=== PATIENT | female | born 1980 | race Two or more races ===

== ENCOUNTER 2016-10-24 15:41 | Emergency (ER) | payer BC ==
[2016-10-24] MEDS ORDERED: Metoprolol Tartrate 5 MG/5 ML SDV IVPUSH ONE (16:14)
[2016-10-24] MEDS ORDERED: Lisinopril 10 MG Tab PO ONE (16:30)
--- NOTE | 2016-10-24 16:36 | EDM.PDOC ---
ED HPI GENERAL MEDICAL PROBLEM - General Chief Complaint: Headache Stated Complaint: hypertension, headache Time Seen by Provider: 10/24/16 16:14 Source of Information: Reports: Patient History Limitations: Reports: No Limitations - History of Present Illness INITIAL COMMENTS - FREE TEXT/NARRATIVE: Patient seen yesterday at the clinic for hypertension with accompanying headache. Started on Klonopin at that time. Here today with similar complaints. Initial blood pressure 180 systolic, 116 diastolic. On norvasc and klonopin. 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 Has been taking the norvasc for over 1 year. Last year they did increase it to 10 mg daily. No other medication for HTN, no KELLY or ARB started prior to the CCB. No visual disturbances but does state her eyes hurt. No weakness, numbness or tingling. Equal strength. No chest pain or shortness of breath. Denies urinary symptoms. No blood in urine or bowels. Onset: Gradual Duration: Recurring Location: Reports: Head Quality: Reports: Ache Severity: Mild Improves with: Reports: Rest Worsens with: Reports: Movement Associated Symptoms: Reports: Headaches Headache Pain Score (Numeric/FACES): 2 - Related Data Allergies Allergy/AdvReac Type Severity Reaction Status Date / Time acetaminophen [From Tylenol] Allergy Rash Verified 10/24/16 17:01 Home Meds: Home Meds ClonazePAM [KlonoPIN] 0.5 mg PO BEDTIME 10/24/16 [History] Cyclobenzaprine HCl [Cyclobenzaprine HCl] 10 mg PO TID PRN 10/24/16 [History] Sertraline HCl [Sertraline HCl] 50 mg PO DAILY 10/24/16 [History] amLODIPine Besylate [Amlodipine Besylate] 10 mg PO DAILY 10/24/16 [History] Past Medical History - Past Health History Medical/Surgical History: Denies Medical/Surgical History Other Musculoskeletal History: plantar fascitis Social & Family History - Tobacco Use Smoking Status *Q: Unknown Ever Smoked Second Hand Smoke Exposure: No - Alcohol Use Days Per Week of Alcohol Use: 0 - Recreational Drug Use Recreational Drug Use: No ED ROS GENERAL - Review of Systems Review Of Systems: See Below Constitutional: Reports: No Symptoms HEENT: Reports: Eye Pain Respiratory: Reports: No Symptoms Cardiovascular: Reports: No Symptoms Endocrine: Reports: No Symptoms GI/Abdominal: Reports: No Symptoms : Reports: No Symptoms Musculoskeletal: Reports: No Symptoms Skin: Reports: No Symptoms Neurological: Reports: Headache Psychiatric: Reports: No Symptoms Hematologic/Lymphatic: Reports: No Symptoms Immunologic: Reports: No Symptoms - Physical Exam Exam: See Below Exam Limited By: No Limitations General Appearance: Alert, WD/WN, No Apparent Distress Eye Exam: Bilateral Eye: EOMI, Normal Inspection, PERRL Ears: Normal TMs Throat/Mouth: Normal Inspection, Normal Oropharynx Head Exam: Atraumatic, Normocephalic Neck: Normal Inspection, Supple, Non-Tender, Full Range of Motion Respiratory/Chest: No Respiratory Distress, Lungs Clear, Normal Breath Sounds, No Accessory Muscle Use, Chest Non-Tender Cardiovascular: Normal Peripheral Pulses, Regular Rate, Rhythm, No Edema, No Gallop, No JVD, No Murmur GI/Abdominal: Normal Bowel Sounds, Soft, Non-Tender, No Organomegaly, No Distention Neuro Exam (Abbreviated): Alert, Oriented, CN II-XII Intact, Normal Cognition, Normal Gait, Normal Reflexes, No Motor/Sensory Deficits Back Exam: Normal Inspection Extremities: Normal Inspection, Normal Range of Motion, Non-Tender, No Pedal Edema, Normal Capillary Refill Psychiatric: Normal Affect, Normal Mood Skin Exam: Warm, Dry, Intact, Normal Color, No Rash Course - Vital Signs Last Recorded V/S: Last Vital Signs Temp 36.1 C 10/24/16 15:45 Pulse 88 10/24/16 17:11 Resp 15 10/24/16 17:11 BP 147/90 H 10/24/16 17:11 Pulse Ox 99 10/24/16 17:11 - Orders/Labs/Meds Orders: Active Orders 24 hr Category Date Time Status TSH RECEPTOR AB (TRAB) [REF] Stat Lab 10/24/16 18:23 Stop Req Meds: Medications Discontinued Medications Generic Name Dose Route Start Last Admin Trade Name Freq PRN Reason Stop Dose Admin Lisinopril 10 mg 10/24/16 16:30 10/24/16 16:43 Prinivil PO 10/24/16 16:31 10 mg ONETIME ONE Administration Metoprolol Tartrate 5 mg 10/24/16 16:14 10/24/16 16:28 Lopressor IVPUSH 10/24/16 16:15 5 mg ONETIME ONE Administration - Re-Assessments/Exams Free Text/Narrative Re-Assessment/Exam: 10/24/16 18:28 Patient prescribed 10 mg Lisinopril and requested to see primary in 2 weeks for labwork Departure - Departure Time of Disposition: 15:45 Disposition: Home, Self-Care 01 Condition: Good Clinical Impression: Hypertensive urgency - Discharge Information Instructions: Hypertension, [id number] Referrals: Kriss Finley GAMES DEALER [Primary Care Provider] - Forms: ED Department Discharge Additional Instructions: Please start taking the lisinopril on a daily basis and go to your primary for a blood draw in 2 weeks to check your electrolyte levels. The most common side effect of the lisinopril is a dry hacky cough. You can also have some swelling Keep your salt intake to less than 2,000 mg, drink more water, and increase your physical activity. This will also lower your blood pressure. If you continue to have a headache, or it becomes worse, or if you have any concerning new signs like your headache worsens or vision changes, make sure you come to the ER. If you have any questions or concerns, you can call us at any time. - Problem List & Annotations (1) Hypertensive urgency SNOMED Code(s): 521813554 Code(s): I10 - ESSENTIAL (PRIMARY) HYPERTENSION Status: Acute Priority: Low - Problem List Review Problem List Initiated/Reviewed/Updated: Yes - My Orders Last 24 Hours: My Active Orders 10/24/16 18:23 TSH RECEPTOR AB (TRAB) [REF] Stat - Assessment/Plan Last 24 Hours: My Active Orders 10/24/16 18:23 TSH RECEPTOR AB (TRAB) [REF] Stat Assessment:: hypertensive urgency Plan: Please start taking the lisinopril on a daily basis and go to your primary for a blood draw in 2 weeks to check your electrolyte levels. The most common side effect of the lisinopril is a dry hacky cough. You can also have some swelling Keep your salt intake to less than 2,000 mg, drink more water, and increase your physical activity. This will also lower your blood pressure. If you continue to have a headache, or it becomes worse, or if you have any concerning new signs like your headache worsens or vision changes, make sure you come to the ER. If you have any questions or concerns, you can call us at any time.
[2016-10-24 17:11] VITALS: BP 147/90
== END 2016-10-24 16:45 | disposition home or self-care (01) ==
LOC: VM.ED 15:41
DX: I16.0 Hypertensive urgency (principal); Z88.8 Allergy status to other drugs, medicaments and biological substances; Z79.899 Other long term (current) drug therapy
CPT/HCPCS: 96374; 99283; A9270; J3490

== ENCOUNTER 2020-12-11 16:06 | Inpatient (IN) | payer BC ==
--- NOTE | 2020-12-11 16:34 | EDM.PDOC ---
ED HPI GENERAL MEDICAL PROBLEM - General Chief Complaint: Respiratory Problem Stated Complaint: SHORT OF BREATH Time Seen by Provider: 12/11/20 16:10 Source of Information: Reports: Patient History Limitations: Reports: No Limitations - History of Present Illness INITIAL COMMENTS - FREE TEXT/NARRATIVE: 40-year-old female that presents ER today with ongoing increased shortness of breath over the last 48 hours. She states that even when a struggle to get up and go to the toilet secondary to the shortness of breath. She states if she rest it does get a little bit better but any type of exertion she is has a hard time getting her breath. She also states when she coughs she is having some sharp burning pains across her chest that last for a few seconds. She also has increased fatigue over the last 2 days and states she is run a fever almost every day into the last probably 36 hours. She was diagnosed with Covid 11 days ago and thought she was doing fine until the last 2 or 3 days. She says she took all of her medicine as directed steroids and vitamins 325 of aspirin and has been drinking plenty of fluids and eating okay. But the shortness of breath does seem to be getting worse and she wanted to come in to be checked out. Initially vital signs patient satting 80% with no signs of any respiratory distress she was placed on a nasal cannula her oxygen saturation come up to 93 she is nontachycardic respiratory rate is within normal limits. Duration: Day(s): Location: Reports: Chest Quality: Reports: Burning Severity: Mild Improves with: Reports: Rest Worsens with: Reports: Movement Context: Reports: Activity Associated Symptoms: Reports: Chest Pain, Cough, cough w sputum, Shortness of Breath. Denies: Confusion, Diaphoresis, Fever/Chills, Headaches, Loss of Appetite, Nausea/Vomiting, Weakness Treatments COOK CHEF: Reports: Acetaminophen, Aspirin - Related Data Allergies Allergy/AdvReac Type Severity Reaction Status Date / Time acetaminophen [From Tylenol] Allergy Rash Verified 10/24/16 17:01 Home Meds: Home Meds ClonazePAM [KlonoPIN] 0.5 mg PO BEDTIME 10/24/16 [History] Cyclobenzaprine HCl 10 mg PO TID PRN 10/24/16 [History] Sertraline HCl 50 mg PO DAILY 10/24/16 [History] amLODIPine Besylate [Amlodipine Besylate] 10 mg PO DAILY 10/24/16 [History] Past Medical History - Past Health History Medical/Surgical History: Denies Medical/Surgical History Cardiovascular History: Reports: Hypertension Musculoskeletal History: Reports: Back Pain, Chronic Other Musculoskeletal History: plantar fascitis Psychiatric History: Reports: Anxiety ED ROS GENERAL - Review of Systems Review Of Systems: See Below Constitutional: Reports: Fever. Denies: Chills, Malaise, Weakness, Fatigue HEENT: Reports: No Symptoms Respiratory: Reports: Shortness of Breath, Pleuritic Chest Pain, Cough, Sputum Cardiovascular: Reports: Chest Pain, Dyspnea on Exertion, Other (Patient denies any radiation of the chest pain and points to both sides of her chest wall sternum). Denies: Edema, Lightheadedness, Orthopnea, Palpitations, PND, Syncope Endocrine: Reports: No Symptoms GI/Abdominal: Reports: No Symptoms : Reports: No Symptoms Musculoskeletal: Reports: No Symptoms Skin: Reports: No Symptoms Neurological: Reports: No Symptoms Psychiatric: Reports: No Symptoms Hematologic/Lymphatic: Reports: No Symptoms Immunologic: Reports: No Symptoms ED EXAM, GENERAL - Physical Exam Exam: See Below Exam Limited By: No Limitations General Appearance: Alert, WD/WN, No Apparent Distress, Other (Patient is talking 15 word sentences no noted respiratory distress) Eye Exam: Bilateral Eye: EOMI, Normal Inspection, PERRL Ears: Normal External Exam, Normal Canal, Hearing Grossly Normal, Normal TMs Nose: Normal Inspection, Normal Mucosa, No Blood Throat/Mouth: Normal Inspection, Normal Lips, Normal Teeth, Normal Gums, Normal Oropharynx, Normal Voice, No Airway Compromise Head: Atraumatic, Normocephalic Neck: Normal Inspection, Supple, Non-Tender, Full Range of Motion Respiratory/Chest: No Respiratory Distress, Lungs Clear, Normal Breath Sounds, No Accessory Muscle Use, Chest Non-Tender. No: Decreased Breath Sounds, Crackles, Rales, Rhonchi, Wheezing Cardiovascular: Normal Peripheral Pulses, Regular Rate, Rhythm, No Edema, No Gallop, No JVD, No Murmur, No Rub GI/Abdominal: Normal Bowel Sounds, Soft, Non-Tender, No Organomegaly, No Distention Back Exam: Normal Inspection, Full Range of Motion Extremities: Normal Inspection, Normal Range of Motion, Non-Tender, No Pedal Edema, Normal Capillary Refill Neurological: Alert, Oriented, CN II-XII Intact, Normal Cognition, Normal Gait, Normal Reflexes, No Motor/Sensory Deficits Psychiatric: Normal Affect, Normal Mood Skin Exam: Warm, Dry, Intact, Normal Color, No Rash Lymphatic: No Adenopathy Course - Vital Signs Text/Narrative:: CBC BMP chest x-ray White blood cell count within normal limits BMP potassium 3.1 we will give 40 mEq p.o. potassium 400 mg Mag-Ox Chest x-ray patchy right sided lower lobe infiltrate noted with congestion With primary care provider Michi he is okay with admission of the patient secondary to hypoxia states he will take care of all the orders and see her in the morning 1839 Last Recorded V/S: Last Vital Signs Temp 36.9 C 12/11/20 16:49 Pulse 88 12/11/20 16:49 Resp 18 12/11/20 16:49 BP 115/75 12/11/20 16:49 Pulse Ox 80 L 12/11/20 16:49 - Orders/Labs/Meds Orders: Active Orders 24 hr Category Date Time Status Chest 1V Frontal [CR] Stat Exams 12/11/20 16:16 Ordered Labs: Laboratory Tests 12/11/20 12/11/20 Range/Units 16:23 16:23 WBC 7.0 (4.0-10.0) x10^3/uL RBC 5.02 (4.00-5.50) x10^6/uL Hgb 14.0 (12.0-16.0) g/dL Hct 41.1 (33.0-47.0) % MCV 81.9 (78.0-93.0) fL MCH 27.9 (26.0-32.0) pg MCHC 34.1 (32.0-36.0) g/dL RDW Coeff of Renae 12.9 (10.0-15.0) % Plt Count 245 (130-400) x10^3/uL Immature Gran % (Auto) 0.70 H (0.00-0.43) % Neut % (Auto) 68.9 (50.0-80.0) % Lymph % (Auto) 20.3 L (25.0-50.0) % [place] % (Auto) 10.0 (2.0-11.0) % Eos % (Auto) 0.0 (0.0-4.0) % Baso % (Auto) 0.1 L (0.2-1.2) % Neut # (Auto) 4.8 (1.8-7.7) x10^3/uL Lymph # (Auto) 1.4 (1.0-4.8) x10^3/uL [place] # (Auto) 0.7 (0.0-0.8) x10^3/uL Eos # (Auto) 0.0 (0.0-0.5) x10^3/uL Baso # (Auto) 0.0 (0.0-0.2) x10^3/uL Immature Gran # (Auto) 0.05 (0.00-0.07) x10^3/uL Sodium 141 (136-145) mmol/L Potassium 3.1 L (3.5-5.1) mmol/L Chloride 102 (98-107) mmol/L Carbon Dioxide 26 (21-32) mmol/L Anion Gap 16.1 H (5-15) mmol/L BUN 17 (7-18) mg/dL Creatinine 0.9 (0.55-1.02) mg/dL Est Cr Clr Drug Dosing 71.03 mL/min Estimated GFR (MDRD) > 60 Glucose 101 H (70-99) mg/dL Calcium 8.0 L (8.5-10.1) mg/dL Meds: Medications Discontinued Medications Generic Name Dose Route Start Last Admin Trade Name Freq PRN Reason Stop Dose Admin Magnesium Oxide 400 mg 12/11/20 17:23 12/11/20 17:29 Magnesium Oxide 400 Mg Tab PO 12/11/20 17:24 400 mg ONETIME ONE Administration Potassium Chloride 40 meq 12/11/20 17:23 12/11/20 17:29 Potassium Chloride 20 Meq Tab.Er PO 12/11/20 17:24 40 meq ONETIME ONE Administration Departure - Departure Time of Disposition: 18:40 Disposition: Admitted As Inpatient 66 Condition: Good Clinical Impression: Hypoxia, Hypokalemia, Shortness of breath - Discharge Information *PRESCRIPTION DRUG MONITORING PROGRAM REVIEWED*: No *COPY OF PRESCRIPTION DRUG MONITORING REPORT IN PATIENT CHIO: No Referrals: Michi Wahl NP [Primary Care Provider] - Forms: ED Department Discharge Sepsis Event Note (ED) - Focused Exam Vital Signs: Vital Signs Temp Pulse Resp BP Pulse Ox 12/11/20 16:49 36.9 C 88 18 115/75 80 L - Problem List & Annotations (1) Hypoxia SNOMED Code(s): 221460834 Code(s): R09.02 - HYPOXEMIA Status: Acute Current Visit: Yes (2) Hypokalemia SNOMED Code(s): 55179486 Code(s): E87.6 - HYPOKALEMIA Status: Acute Current Visit: Yes (3) Shortness of breath SNOMED Code(s): 434264118 Code(s): R06.02 - SHORTNESS OF BREATH Status: Acute Current Visit: Yes - My Orders Last 24 Hours: My Active Orders 12/11/20 16:16 Chest 1V Frontal [CR] Stat - Assessment/Plan Last 24 Hours: My Active Orders 12/11/20 16:16 Chest 1V Frontal [CR] Stat
[2020-12-11 16:46] LABS: CHLORIDE,CL 102 mmol/L (98-107); SODIUM,NA 141 mmol/L (136-145)
[2020-12-11 16:47] LABS: ANION GAP 16.1 mmol/L (5-15)
[2020-12-11] MEDS ORDERED: Magnesium Oxide 400 MG Tab PO ONE (17:23)
[2020-12-11] MEDS ORDERED: Potassium Chloride 20 MEQ Tab.ER PO ONE (17:23)
[2020-12-11] MEDS ORDERED: Ibuprofen 200 MG Tab PO PRN (19:10)
[2020-12-11] MEDS ORDERED: REMDESIVIR 200 MG in Sodium Chloride 0.9% 250 ML IV ONE (19:10)
[2020-12-11] MEDS ORDERED: Cyclobenzaprine 10 MG Tab PO PRN (19:12)
[2020-12-11] MEDS: Sodium Chloride 0.9% 1,000 ML IV SCH (20:20)
[2020-12-11] MEDS: dexAMETHasone 2 MG, dexAMETHasone 4 MG PO SCH ×2 (20:22)
[2020-12-12 07:49] LABS: ANION GAP 16.9 mmol/L (5-15); CHLORIDE,CL 106 mmol/L (98-107); SODIUM,NA 142 mmol/L (136-145)
--- NOTE | 2020-12-12 07:53 | CR ---
[id number] RAD/RAD Chest Portable EXAM: PORTABLE CHEST RADIOGRAPH. INDICATION: SHORTNESS OF BREATH COMPARISON: No previous similar exam is available for comparison. FINDINGS: There is mild edema The cardiac silhouette is within normal limits. IMPRESSION: APPEARANCE OF MILD EDEMA Juan C Oropeza MD 12/12/20 0751 Thank you for allowing us to participate in the care of your patient.
[2020-12-12] MEDS: Enoxaparin 40 MG/0.4 ML Syringe SUBCUT SCH (08:24)
[2020-12-12] MEDS: dexAMETHasone 2 MG, dexAMETHasone 4 MG PO SCH ×2 (08:24)
[2020-12-12] MEDS: amLODIPine 10 MG Tab PO SCH (08:25)
--- NOTE | 2020-12-12 09:05 | HP ---
History and physical to the acute care floor at [facility]. CHIEF COMPLAINT: Shortness of breath. HISTORY OF PRESENT ILLNESS: A 40-year-old female patient presented to the emergency room late last evening for ongoing increased shortness of breath over the past couple of days. The patient was diagnosed with COVID-19 on 12/02/2020. Since then, she states her breathing has progressively gotten worse. The patient states that she feels very weak. She struggled to get up from the toilet at home this evening. The patient states it is hard to catch her breath. She is also having a dry nonproductive cough, which is giving her chest pain. She has also had increased fatigue over the last 2 days. The patient states she has been running a fever at home ranging anywhere from 99 to 102 over the past 36 hours. The patient has not had any headaches, dizziness, or lightheadedness. No palpitations or leg swelling. No abdominal problems. No nausea, vomiting, or diarrhea. No skin concerns. The patient has had intermittent chills with fevers. She has tried to stay well hydrated with good p.o. fluid intake. This patient was seen by me in clinic last Saturday and was started on prednisone. Patient states the prednisone really did not help. Her shortness of breath continued to get worse. Upon arrival in the emergency room, the patient's room air saturations were 80%. The rest of the workup in the emergency room was essentially negative. PAST MEDICAL HISTORY: 1. Metabolic syndrome. 2. Obesity. 3. Essential hypertension. 4. Generalized anxiety disorder. PAST SURGICAL HISTORY: None. FAMILY HISTORY: The patient's mother is . Her father is alive. She has 1 aunt who from diabetes. SOCIAL HISTORY: The patient does not smoke cigarettes. No alcohol use. No illegal drugs. 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 The patient is single. CODE STATUS: Full code. LABORATORY STUDIES: 1. CBC: White blood cell count 3.5, hemoglobin 12.7, hematocrit 37.6, and platelets 243,000. 2. Sodium 142, potassium 3.9, chloride 106, CO2 of 23, anion gap 16.9, BUN 15, creatinine 0.7, GFR greater than 60, glucose 129, calcium 8.0, AST 20, ALT 28, alkaline phosphatase 47, and total protein 7.3. 3. Lactic acid 1.1. 4. Ferritin 142. 5. LDH 365. 6. C-reactive protein 2.2. IMAGING STUDIES: Chest x-ray shows mild edema, otherwise clear. MEDICATIONS: 1. Amlodipine 10 mg 1 tablet p.o. daily. 2. Flexeril 10 mg 1 tablet p.o. 3 times daily as needed. 3. Ibuprofen 800 mg every 6 hours as needed. REVIEW OF SYSTEMS: See HPI. PHYSICAL EXAMINATION: Vital Signs: Temperature 98, pulse 58, blood pressure 99/63, respiratory rate 28, and oxygen saturation 97% on 4 L. Skin: Intact, warm, and dry. Respiratory: Lungs are decreased/diminished throughout with scattered rhonchi. No crackles. Cardiovascular: Regular rate and rhythm, no murmur. Abdomen: Soft, nontender. Bowel sounds are hypoactive x4. Extremities: No edema. Neurological: The patient is alert. The patient is cooperative. No new focal neurological deficits. The patient is alert and oriented x3. ASSESSMENT: 1. Acute respiratory failure with hypoxia secondary to COVID-19. 2. Hypoxia requiring oxygen. 3. Essential hypertension. 4. Generalized anxiety disorder. 5. Metabolic syndrome. PLAN: This is a 40-year-old female patient admitted to the acute care floor at [facility] for respiratory failure with hypoxia secondary to COVID-19. The patient will be started on remdesivir and Decadron. Continue with oxygen to keep saturations greater than 90%. Continue home medications the same. We will add Klonopin for anxiety/panic attacks, especially with activity. Continue with incentive spirometer and cough and deep breathing exercises. Discussed with the patient hopefully, we can get her home over the next 1 to 2 days; however, it maybe longer. The patient is a full code 1. The patient does wish to transfer to a higher level of care should the need arise. Recheck laboratory work tomorrow. This patient was seen and examined by me as an [facility] provider. TB: 12/12/2020 08:13:44 MODL: 12/12/2020 08:57:27 /[id number]
[2020-12-12] MEDS: Sodium Chloride 0.9% 1,000 ML IV SCH (17:05)
[2020-12-12] MEDS: REMDESIVIR 100 MG in Sodium Chloride 0.9% 100 ML IV SCH (17:08)
[2020-12-13 07:36] LABS: ANION GAP 16.4 mmol/L (5-15); CHLORIDE,CL 106 mmol/L (98-107); SODIUM,NA 141 mmol/L (136-145)
[2020-12-13] MEDS ORDERED: Potassium Chloride 20 MEQ Tab.ER PO ONE (07:47)
[2020-12-13] MEDS: amLODIPine 10 MG Tab PO SCH (09:23)
[2020-12-13] MEDS: dexAMETHasone 2 MG, dexAMETHasone 4 MG PO SCH ×2 (09:24)
[2020-12-13] MEDS: Enoxaparin 40 MG/0.4 ML Syringe SUBCUT SCH (09:24)
[2020-12-13] MEDS: Sodium Chloride 0.9% 1,000 ML IV SCH (14:03)
[2020-12-13] MEDS: REMDESIVIR 100 MG in Sodium Chloride 0.9% 100 ML IV SCH (17:49)
--- NOTE | 2020-12-13 19:53 | PCM.EKG ---
#1 Interpretation EKG Date: 12/13/20 Time: 07:19 Rhythm: NSR Rate (Beats/Min): 59 [place]: Normal P-Wave: Present QRS: Normal ST-T: Normal QT: Normal OK/PQ Interval: 0.13 Comparison: NA - No Prior EKG EKG Interpretation Comments: NSR
[2020-12-14 07:17] LABS: CHLORIDE,CL 107 mmol/L (98-107); SODIUM,NA 140 mmol/L (136-145)
[2020-12-14 07:18] LABS: ANION GAP 12.5 mmol/L (5-15)
[2020-12-14] MEDS: dexAMETHasone 2 MG, dexAMETHasone 4 MG PO SCH ×2 (07:59)
[2020-12-14] MEDS: amLODIPine 10 MG Tab PO SCH (07:59)
[2020-12-14] MEDS: Enoxaparin 40 MG/0.4 ML Syringe SUBCUT SCH (08:00)
--- NOTE | 2020-12-14 14:31 | CR ---
[id number] RAD/RAD Chest PA And Lateral EXAM: RAD Chest PA And Lateral INDICATION: SHORTNESS OF BREATH. HYPOXIA. COMPARISON: December 11, 2020. DISCUSSION: Bilateral airspace edema and/or infiltrates have mildly increased, favor infiltrates. Borderline heart size. No effusions. IMPRESSION: 1. Increased patchy bilateral airspace opacities, favor infiltrates. iWsam Cevallos MD 12/14/20 3483 Thank you for allowing us to participate in the care of your patient.
[2020-12-14] MEDS: REMDESIVIR 100 MG in Sodium Chloride 0.9% 100 ML IV SCH (18:17)
--- NOTE | 2020-12-15 03:42 | PN ---
Progress Note for CAROLYN BAZZI Date: 12/13/2020 Room #: [id number] CHIEF COMPLAINT: Shortness of breath. SUBJECTIVE: Hospital day #2 on a 40-year-old female patient, who was admitted to the acute care floor at [facility] for acute respiratory failure with hypoxia secondary to COVID-19. The patient states she is not feeling any better today. She continues to have significant desaturations with activity. Continues with a productive cough. Feels short of breath with activity. No shortness of breath when lying in bed. No chest pain or palpitations. No leg swelling. No abdominal complaints. No nausea, vomiting, or diarrhea. Appetite has been good. No issues with urination or bowel movements. No fevers or chills. No skin concerns. OBJECTIVE: Vital Signs: Temperature 98.7, pulse 54, blood pressure 124/77, respiratory rate 24, oxygen saturation 98% on 4 L. Skin: Intact, warm, and dry. Respiratory: Scattered rhonchi throughout, decreased. No crackles. Cardiovascular: Regular rate and rhythm, no murmur. Abdomen: Soft, nontender. Bowel sounds are normoactive x4. Extremities: No edema. Neurological: The patient is alert and oriented x3. No new focal neurological deficits. The patient is cooperative. LABORATORY STUDIES: 1. CBC: White blood cell count 4.7, hemoglobin 12.7, hematocrit 38.0, platelets 269,000. 2. CMP: Sodium 141, potassium 3.4, chloride 106, CO2 22, anion gap 16.4, BUN 19, creatinine 0.8, GFR greater than 60, glucose 110, calcium 8.1, AST 18, ALT 27, alkaline phosphatase 44. 3. CK 45. 4. Troponin 9. ASSESSMENT: 1. Acute respiratory failure with hypoxia secondary to COVID-19. 2. Hypoxia, requiring oxygen. 3. Essential hypertension. 4. Generalized anxiety disorder. 5. Metabolic syndrome. PLAN: Hospital day #2 on a 40-year-old female patient, who was admitted to the acute care floor at [facility] for acute respiratory failure with hypoxia secondary to COVID-19. Continue on oxygen to keep sats greater than 90%. Continue on remdesivir and Decadron. The patient will stay acute cares. Recheck laboratory work tomorrow. Encourage the patient to be as active as possible and get up and move around. We discussed cough and deep breathing and IS. No indication for PT or OT. The patient is a code 1. Plan to discharge in the next couple of days if stable. Recheck laboratory work tomorrow morning. This patient was seen and examined by me as an [facility] provider. TB: 12/14/2020 08:32:58 MODL: 12/15/2020 03:33:33 /[id number]
--- NOTE | 2020-12-15 03:49 | PN ---
Progress Note for CAROLYN BAZZI Date: 12/14/2020 Room #: [facility] CHIEF COMPLAINT: Shortness of breath. SUBJECTIVE: Hospital day #3 on a 40-year-old female patient, who was admitted for acute respiratory failure with hypoxia secondary to COVID-19. The patient states she is feeling somewhat better today. She continues on oxygen to keep her saturations greater than 90%. Appetite has been good. The patient is feeling a little bit weak, being in bed. The patient's cough has improved. She states it is not so productive. She continues to have shortness of breath with activity. She also has desaturations with activity. The patient denies any headaches, dizziness, or lightheadedness. No chest pain or palpitations. No leg swelling. The patient denies any skin concerns. No fevers or chills. No issues with urination or bowel movements. No abdominal pain. The patient denies any nausea, vomiting, or diarrhea. OBJECTIVE: Vital Signs: Temperature 98, pulse 60, blood pressure 126/73, respiratory rate 24, oxygen saturation 94% on 5 L. Skin: Intact, warm, and dry. Respiratory: Lungs are decreased throughout, otherwise clear. Cardiovascular: Regular rate and rhythm, no murmur. Abdomen: Soft, nontender. Bowel sounds are normoactive x4. Extremities: No edema. Neurological: The patient is alert. The patient is cooperative. No new focal neurological deficits. LABORATORY STUDIES: 1. CBC: White blood cell count 7.4, hemoglobin 12.7, hematocrit 37.7, platelets 306,000. 2. CMP: Sodium 140, potassium 3.5, chloride 107, CO2 24, anion gap 12.5, BUN 16, creatinine 0.7, GFR greater than 60, glucose 97, calcium 8.0, AST 18, ALT 29, alkaline phosphatase 40, protein 6.6. ASSESSMENT: 1. Acute respiratory failure with hypoxia secondary to COVID-19. 2. Hypoxia, requiring oxygen. 3. Essential hypertension. 4. Generalized anxiety disorder. 5. Metabolic syndrome. PLAN: Hospital day #3 on a 40-year-old female patient, who was admitted to the acute care floor at [facility] for the above diagnoses. Continue to wean oxygen as able to keep saturation greater than 90%. Continue on remdesivir and Decadron. The patient will continue on acute cares for now given her hypoxia. We will discontinue any IV fluids. Encourage p.o. fluid intake. We did discuss cough and deep breathing and IS. Recheck laboratory work tomorrow. Anticipate discharge in the next 1 to 2 days if the patient does well. This patient was seen and examined by me as an [facility] provider. TB: 12/14/2020 08:37:29 MODL: 12/15/2020 03:40:56 /[id number]
[2020-12-15 07:18] LABS: CHLORIDE,CL 106 mmol/L (98-107); SODIUM,NA 140 mmol/L (136-145)
[2020-12-15 07:19] LABS: ANION GAP 13.3 mmol/L (5-15)
[2020-12-15] MEDS: amLODIPine 10 MG Tab PO SCH (07:48)
[2020-12-15] MEDS: dexAMETHasone 2 MG, dexAMETHasone 4 MG PO SCH ×2 (07:49)
[2020-12-15] MEDS: Enoxaparin 40 MG/0.4 ML Syringe SUBCUT SCH ×2 (07:50→11:33)
[2020-12-15 10:17] VITALS: BP 107/75; PULSE 80
[2020-12-15] MEDS ORDERED: REMDESIVIR 0 MG ONE (13:14)
[2020-12-15] MEDS: REMDESIVIR 100 MG in Sodium Chloride 0.9% 100 ML IV SCH (13:19)
--- NOTE | 2020-12-15 14:41 | DISCH ---
Discharge summary from the acute care floor at [facility] HISTORY OF PRESENT ILLNESS: 40-year-old female patient presented to the emergency room on 12/11 with increased shortness of breath over the past couple of days. The patient had been diagnosed with COVID-19 on 12/02/2020. Since then, she states her breathing has progressively gotten worse. The patient states that she feels very weak. She struggles to get up from the toilet at home due to weakness. Upon arrival to the emergency room, the patient had oxygen saturations in the low 80s on room air. The patient stated it was hard to catch her breath. She has had a dry nonproductive cough. Increasing fatigue over the past couple of days. Temperatures at home have been ranging anywhere from 99 to 102. The patient was then admitted for acute respiratory failure with hypoxia secondary to COVID-19 pneumonia. BRIEF HOSPITAL COURSE: The patient remained hemodynamically stable and afebrile. The patient was given remdesivir and Decadron. The patient was unable to wean off oxygen, however, her oxygen saturations have been adequate on 2 to 3 L of oxygen. No issues with urination or bowel movements. Appetite has been fair. The patient still feels somewhat weak. CONSULTATIONS: Case Management for discharge planning. DIET: Regular. ACTIVITY: As tolerated. CODE STATUS: Full code 1. REVIEW OF SYSTEMS: Constitutional: Negative. Skin: Negative. Respiratory: Intermittent shortness of breath with activity, no cough. Cardiovascular: Negative. Abdomen: Negative. Extremities: Negative. Neurological: Negative. DISCHARGE PHYSICAL EXAMINATION: Vital Signs: Temperature 97.9, pulse 57, blood pressure 114/67, respiratory rate 24, oxygen saturation 93% on 3.5 L. Skin: Intact, warm, and dry. Respiratory: Lungs are decreased throughout, otherwise clear. Cardiovascular: Regular rate and rhythm, no murmur. Abdomen: Soft, nontender. Bowel sounds are normoactive x4. Extremities: No edema. Neurological: The patient is alert. Patient is oriented to person, place, and time. No focal neurological deficits. LABORATORY STUDIES: 1. CBC: White blood cell count 8.5, hemoglobin 12.6, hematocrit 37.0, platelets 331,000. 2. CMP: Sodium 140, potassium 3.3, chloride 102, CO2 of 24, anion gap 13.3, BUN 16, creatinine 0.7, GFR greater than 60, glucose 89, calcium 8.3, AST 15, ALT 35, alkaline phosphatase 40, total protein 7.2. DISCHARGE MEDICATIONS: 1. Amlodipine 10 mg 1 tablet p.o. daily. 2. Cyclobenzaprine 10 mg 1 tablet p.o. 3 times daily as needed. 3. Ibuprofen 800 mg 1 tablet p.o. every 6 hours as needed. 4. Prednisone 20 mg daily x5 days, then stop. ASSESSMENT: 1. Acute respiratory failure with hypoxia secondary to COVID-19. 2. COVID-19 pneumonia. 3. Hypoxia requiring oxygen. 4. Essential hypertension. 5. Generalized anxiety disorder. 6. Metabolic syndrome. PLAN: 40-year-old female patient was admitted to the acute care floor at [facility] for the above diagnoses. The patient has progressed well but slowly. The patient will be discharged home today on remote patient monitoring through [facility]. Continue on steroids. The patient will be seen virtually by me in the clinic tomorrow. Continue all other medications the same. We will add clonazepam for the patient's anxiety. The patient was discharged in hemodynamically stable condition. This patient was seen and examined by me as an [facility] provider. TB: 12/15/2020 08:00:53 MODL: 12/15/2020 14:31:23 /[id number]
== END 2020-12-15 15:15 | disposition home or self-care (01) | DRG 137 ==
LOC: VM.ED 16:06 → VM.MS 18:50
PROVIDERS: ADMIT Nurse Practitioner Family; ATTEND Nurse Practitioner Family
PROC: 8E0ZXY6 Isolation (ICD-10-PCS; principal; 2020-12-11)
PROC: XW033E5 Introduction of Remdesivir Anti-infective into Peripheral Vein, Percutaneous Approach, New Technology Group 5 (ICD-10-PCS; 2020-12-11)
PROC: 3E0DX3Z Introduction of Anti-inflammatory into Mouth and Pharynx, External Approach (ICD-10-PCS; 2020-12-11)
DX: U07.1 COVID-19 (principal); J12.82 Pneumonia due to coronavirus disease 2019; J96.01 Acute respiratory failure with hypoxia; F41.1 Generalized anxiety disorder; E88.81 Metabolic syndrome and other insulin resistance; E66.9 Obesity, unspecified; M54.9 Dorsalgia, unspecified; G89.29 Other chronic pain; E87.6 Hypokalemia; I10 Essential (primary) hypertension; Z79.899 Other long term (current) drug therapy; Z68.30 Body mass index [BMI] 30.0-30.9, adult
CPT/HCPCS: 36415; 71045; 71046; 80048; 80053; 81003; 82550; 82728; 83605; 83615; 83735; 84484; 85025; 86140; 87070; 87205; 93005; 94760; 99284; 99285-25; A9270-GY; J1650; J7030; J7050; J8540

== ENCOUNTER 2024-11-07 13:55 | Emergency (ER) | payer BC ==
[2024-11-07 14:13] VITALS: BP 168/100; PULSE 71
[2024-11-07] MEDS ORDERED: Ketorolac 15 MG/ML SDV IVPUSH ONE (14:17)
[2024-11-07] MEDS: Take Home: Cyclobenzaprine 10 MG Tab, 4 Tab Pack PO ONE (14:24)
[2024-11-07] MEDS: Dexamethasone 4 MG/ML SDV IM ONE (14:24)
[2024-11-07] MEDS: Orphenadrine 60 MG/2 ML Inj IM ONE (14:26)
[2024-11-07] MEDS: Dexamethasone 10 MG/ML SDV IM ONE (14:31)
[2024-11-07] MEDS: Ketorolac 30 MG/ML SDV IM ONE (14:32)
== END 2024-11-07 14:38 | disposition home or self-care (01) ==
LOC: VM.ED 13:55
DX: M54.50 Low back pain, unspecified (principal); I10 Essential (primary) hypertension; Z79.899 Other long term (current) drug therapy
CPT/HCPCS: 96372; 99283; A9270-GY; J1100; J1885; J2360